=== PATIENT | male | born 1960 | race Caucasian/White ===

== ENCOUNTER 2016-11-05 10:54 | Inpatient (IN) | payer OTHER ==
[2016-11-05] MEDS ORDERED: IOPAMIDOL (ISOVUE-300) 100 ML BTL ONE (11:03)
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
[2016-11-05 11:12] LABS: ADD DIFF? YES; ADD MORPH? NO; ADD SCAN? YES; ATYPICAL LYMPHOCYTE FLAG 0 (0-99); FRAGMENT RBC FLAG 0 (0-99); HEMATOCRIT 39.1 % (40.0-51.0); HEMOGLOBIN 13.3 g/dL (13.7-17.5); LEFT SHIFT FLG 50 (0-99); LIPEMIA HEMOLYSIS FLAG 90 (0-99); MEAN CELL HEMOGLOBIN 33.3 pg (27.9-34.1); MEAN PLATELET VOLUME 8.9 fL (8.7-11.7); PLATELET CLUMPS FLAG 0 (0-99); PLATELET COUNT 368 10^3/uL (150-400); RED BLOOD CELL COUNT 3.99 10^6/uL (4.40-6.38); RED CELL DISTRIBUTION WIDTH 12.7 % (11.5-15.2)
[2016-11-05 11:33] LABS: ANION GAP 12 mEq/L (8-16); CALCIUM 8.9 mg/dL (8.5-10.4); CARBON DIOXIDE 18 mEq/l (22-31); CHLORIDE 109 mEq/L (97-110); CREATININE 0.8 mg/dL (0.7-1.3); GLOMERULAR FILTRATION RATE > 60; GLUCOSE 168 mg/dL (70-100); POTASSIUM 3.7 mEq/L (3.5-5.2); SODIUM 139 mEq/L (134-144)
[2016-11-05] MEDS ORDERED: LET GEL TOPICAL 1 EA SYR TP ONE (11:33)
[2016-11-05 11:50] LABS: PLATELET ESTIMATE ADEQUATE (ADEQ)
[2016-11-05] MEDS ORDERED: HYDROmorphONE/DILAUDID 1 MG/ML SYR ONE (12:08)
[2016-11-05] MEDS ORDERED: HYDROmorphONE/DILAUDID 1 MG/ML SYR IVP ONE (12:13)
[2016-11-05] MEDS ORDERED: ONDANSETRON 4 MG/2 ML VIAL IVP PRN (13:39)
[2016-11-05] MEDS ORDERED: D5W 1/2 NS 1,000 ML IV SCH (13:45)
[2016-11-05] MEDS: DIAZEPAM 5 MG TAB PO PRN (16:15)
[2016-11-05 16:22] LABS: ABSOLUTE IMMATURE GRANULOCYTES 0.26 10^3/uL (0.00-0.10); ADD DIFF? NO; ADD MORPH? NO; ADD SCAN? NO; ATYPICAL LYMPHOCYTE FLAG 0 (0-99); FRAGMENT RBC FLAG 0 (0-99); HEMOGLOBIN 12.4 g/dL (13.7-17.5); LEFT SHIFT FLG 30 (0-99); LIPEMIA HEMOLYSIS FLAG 80 (0-99); MEAN CELL HEMOGLOBIN 33.2 pg (27.9-34.1); MEAN CELL HEMOGLOBIN CONCENTR. 33.5 g/dL (32.4-36.7); MEAN CELL VOLUME 98.9 fL (81.5-99.8); MEAN PLATELET VOLUME 8.8 fL (8.7-11.7); PLATELET CLUMPS FLAG 0 (0-99); PLATELET COUNT 251 10^3/uL (150-400); RED BLOOD CELL COUNT 3.74 10^6/uL (4.40-6.38); RED CELL DISTRIBUTION WIDTH 12.9 % (11.5-15.2)
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
[2016-11-05] MEDS: BACITRACIN ZINC 14.2 GM OINTTUBE TP SCH (20:29)
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
--- NOTE | 2016-11-05 23:35 | SOAPPROG ---
SOAP Progress Note Assessment/Plan: Assessment: FU CXR DOES NOT SHOW PNEUMO BUT HAS COLLAPSING CHEST WALL BS EQUAL/ PAIN CONTROL ADEQUATE Plan:VIGOROUS PULMONARY TOILET/ CONSIDER EPIDURAL AND CONSIDER RIB PLATING/ WILL SCHEDULE FOR WEDNESDAY IF NOT IMPROVING 11/05/16 23:33 Objective: Vital Signs Temp Pulse Resp BP Pulse Ox 37.3 C 76 18 127/73 H 95 11/05/16 14:11 11/05/16 14:11 11/05/16 14:11 11/05/16 14:11 11/05/16 14:11 Laboratory Results 11/05/16 16:12 11/04/16 11/05/16 11/06/16 05:59 05:59 05:59 Intake Total 1050 Balance 1050 ICD10 Worksheet Patient Problems: Problems Problem Status Onset Multiple traumatic injuries Acute
[2016-11-06] MEDS: ZOLPIDEM TARTRATE 5 MG TAB PO PRN (00:12)
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
[2016-11-06 01:20] LABS: % IMMATURE GRANULYOCYTES 0.6 % (0.0-1.1); ADD DIFF? NO; ADD MORPH? NO; ADD SCAN? NO; ATYPICAL LYMPHOCYTE FLAG 0 (0-99); FRAGMENT RBC FLAG 0 (0-99); HEMATOCRIT 37.4 % (40.0-51.0); HEMOGLOBIN 12.3 g/dL (13.7-17.5); LEFT SHIFT FLG 10 (0-99); LIPEMIA HEMOLYSIS FLAG 80 (0-99); MEAN CELL HEMOGLOBIN 32.6 pg (27.9-34.1); MEAN CELL HEMOGLOBIN CONCENTR. 32.9 g/dL (32.4-36.7); MEAN CELL VOLUME 99.2 fL (81.5-99.8); MEAN PLATELET VOLUME 9.1 fL (8.7-11.7); PLATELET CLUMPS FLAG 0 (0-99); PLATELET COUNT 258 10^3/uL (150-400); RED BLOOD CELL COUNT 3.77 10^6/uL (4.40-6.38); RED CELL DISTRIBUTION WIDTH 13.2 % (11.5-15.2)
[2016-11-06 04:30] LABS: % IMMATURE GRANULYOCYTES 0.6 % (0.0-1.1); ADD DIFF? NO; ADD MORPH? NO; ADD SCAN? NO; ATYPICAL LYMPHOCYTE FLAG 0 (0-99); FRAGMENT RBC FLAG 0 (0-99); HEMATOCRIT 37.2 % (40.0-51.0); HEMOGLOBIN 12.1 g/dL (13.7-17.5); LEFT SHIFT FLG 10 (0-99); LIPEMIA HEMOLYSIS FLAG 80 (0-99); MEAN CELL HEMOGLOBIN 32.6 pg (27.9-34.1); MEAN CELL HEMOGLOBIN CONCENTR. 32.5 g/dL (32.4-36.7); MEAN CELL VOLUME 100.3 fL (81.5-99.8); MEAN PLATELET VOLUME 9.1 fL (8.7-11.7); PLATELET CLUMPS FLAG 0 (0-99); PLATELET COUNT 260 10^3/uL (150-400); RED BLOOD CELL COUNT 3.71 10^6/uL (4.40-6.38); RED CELL DISTRIBUTION WIDTH 13.2 % (11.5-15.2)
[2016-11-06 05:15] LABS: ANION GAP 8 mEq/L (8-16); CALCIUM 8.8 mg/dL (8.5-10.4); CARBON DIOXIDE 25 mEq/l (22-31); CHLORIDE 106 mEq/L (97-110); CREATININE 0.7 mg/dL (0.7-1.3); GLOMERULAR FILTRATION RATE > 60; GLUCOSE 106 mg/dL (70-100); POTASSIUM 4.5 mEq/L (3.5-5.2); SODIUM 139 mEq/L (134-144)
[2016-11-06] MEDS: BACITRACIN ZINC 14.2 GM OINTTUBE TP SCH ×2 (10:40→17:00)
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
[2016-11-07] MEDS: BACITRACIN ZINC 14.2 GM OINTTUBE TP SCH ×2 (08:18→20:07)
[2016-11-07] MEDS ORDERED: KETOROLAC 30 MG/1 ML SDV IVP ONE (09:09)
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
[2016-11-07] MEDS: oxyCODONE IR 15 MG TAB PO PRN (10:36)
[2016-11-07] MEDS: KETOROLAC 15 MG/1 ML SDV IVP SCH ×2 (15:17→20:07)
[2016-11-07] MEDS: DOCUSATE SODIUM 100 MG CAP PO SCH (20:08)
[2016-11-07] MEDS: DIAZEPAM 5 MG TAB PO PRN (20:08)
[2016-11-08] MEDS: oxyCODONE IR 15 MG TAB PO PRN ×2 (00:53→07:48)
[2016-11-08] MEDS: KETOROLAC 15 MG/1 ML SDV IVP SCH ×4 (03:10→20:57)
[2016-11-08] MEDS: BACITRACIN ZINC 14.2 GM OINTTUBE TP SCH ×2 (07:49→21:03)
[2016-11-08] MEDS: DOCUSATE SODIUM 100 MG CAP PO SCH ×2 (07:49→21:03)
[2016-11-08] MEDS ORDERED: BISACODYL 10 MG SUPP PR PRN (08:23)
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
[2016-11-08] MEDS: POLYETHYLENE GLYCOL 3350 17 GM PKT PO PRN (12:59)
[2016-11-08] MEDS: SENNOSIDES/DOCUSATE SODIUM TAB PO SCH ×2 (13:00→20:59)
[2016-11-08] MEDS: oxyCODONE IR 5 MG TAB PO PRN ×3 (15:32→22:16)
[2016-11-08] MEDS: ZOLPIDEM TARTRATE 5 MG TAB PO PRN (21:00)
[2016-11-08] MEDS: DIAZEPAM 5 MG TAB PO PRN (22:16)
[2016-11-09] MEDS: oxyCODONE IR 5 MG TAB PO PRN ×6 (04:38→23:37)
[2016-11-09] MEDS: KETOROLAC 15 MG/1 ML SDV IVP SCH ×4 (04:39→20:09)
[2016-11-09] MEDS: SENNOSIDES/DOCUSATE SODIUM TAB PO SCH ×2 (08:08→20:06)
[2016-11-09] MEDS: BACITRACIN ZINC 14.2 GM OINTTUBE TP SCH ×2 (08:09→23:40)
[2016-11-09] MEDS: DOCUSATE SODIUM 100 MG CAP PO SCH ×2 (08:10→20:07)
--- NOTE | 2016-11-09 09:20 | CPEKG ---
Heart Rate: 64 RR Interval: 938 P-R Interval: 184 QRSD Interval: 96 QT Interval: 412 QTC Interval: 425 P [place]: 49 QRS [place]: -12 T Wave [place]: -1 EKG Severity - NORMAL ECG - EKG Impression: SINUS RHYTHM Electronically Signed By: Jason Batista 10-Nov-2016 16:10:47
[2016-11-09] MEDS: ZOLPIDEM TARTRATE 5 MG TAB PO PRN (20:11)
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
[2016-11-09] MEDS: DIAZEPAM 5 MG TAB PO PRN (23:38)
[2016-11-10] MEDS: KETOROLAC 15 MG/1 ML SDV IVP SCH ×5 (05:23→21:52)
[2016-11-10] MEDS: oxyCODONE IR 5 MG TAB PO PRN ×5 (07:47→16:25)
[2016-11-10] MEDS: DIAZEPAM 5 MG TAB PO PRN ×4 (07:49→16:26)
[2016-11-10] MEDS: DOCUSATE SODIUM 100 MG CAP PO SCH ×2 (07:50→21:05)
[2016-11-10] MEDS: SENNOSIDES/DOCUSATE SODIUM TAB PO SCH ×2 (07:50→21:05)
[2016-11-10] MEDS: POLYETHYLENE GLYCOL 3350 17 GM PKT PO PRN (07:51)
[2016-11-10] MEDS: BACITRACIN ZINC 14.2 GM OINTTUBE TP SCH ×2 (10:04→21:04)
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
[2016-11-10] MEDS ORDERED: ceFAZolin 2 GM/DEXTROSE 100 ML IV ONE (17:12)
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
[2016-11-10] MEDS ORDERED: LIDOCAINE 1% 300 MG/30 ML SDV ONE (22:35)
[2016-11-10] MEDS ORDERED: BUPIVACAINE/EPI 0.5% 30 ML SDV ONE (22:35)
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
[2016-11-10] MEDS ORDERED: MIDAZOLAM 2 MG/2 ML VIAL ONE (23:00)
[2016-11-10] MEDS ORDERED: PROPOFOL 200 MG/20 ML VIAL ONE ×2 (23:00)
[2016-11-10] MEDS ORDERED: fentaNYL 100 MCG/2 ML INJ ONE ×3 (23:00→23:39)
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
[2016-11-10] MEDS ORDERED: NALOXONE HCL 0.4 MG/ML INJ IVP PRN (23:19)
--- NOTE | 2016-11-10 23:30 | POSTOPPROG ---
Post Op Note Date of Operation: 11/10/16 Surgeon: John Brice Art Critic: None Anesthesiologist: Dr. Parth Holman Anesthesia: IV Sedation Pre-op Diagnosis: Hydropneumothorax post trauma Post-op Diagnosis: Same Indication: Hypoxia Procedure: Right closed tube thoracostomy Findings: Approximately 200 cc of serosanguineous drainage with air Inf/Abcess present in the surg proc area at time of surgery?: No Complications: None Drains: Other ([facility] 28 Guatemalan chest tube) Specimen(s): None
--- NOTE | 2016-11-10 23:33 | POSTANESTH ---
Post Anesthetic Evaluation Cardiovascular Status: Normal, Stable Respiratory Status: Similar to Pre-op Cond. Level of Consciousness/Mental Status: Can Participate in Eval Pain Control: Adequate, Prn Tx Ordered Nausea/Vomiting Control: Adequate, Prn Tx Ordered Complications Possibly Related to Anesthesia: None Noted
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
[2016-11-10] MEDS: fentaNYL 100 MCG/2 ML INJ IVP PRN ×2 (23:41→23:56)
[2016-11-11] MEDS ORDERED: ceFAZolin 2 GM/DEXTROSE 100 ML IV ONE (06:00)
[2016-11-11] MEDS ORDERED: BUPIVACAINE/EPI 0.5% 30 ML SDV ONE (08:05)
[2016-11-11] MEDS: SENNOSIDES/DOCUSATE SODIUM TAB PO SCH ×2 (08:29→20:10)
[2016-11-11] MEDS: DOCUSATE SODIUM 100 MG CAP PO SCH ×2 (08:29→20:10)
[2016-11-11] MEDS: KETOROLAC 15 MG/1 ML SDV IVP SCH ×3 (08:30→20:09)
[2016-11-11] MEDS ORDERED: BUPIVACAINE 0.5% 30 ML SDV ONE (08:32)
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
[2016-11-11] MEDS ORDERED: LR 1,000 ML IV ONE (10:04)
[2016-11-11] MEDS: BACITRACIN ZINC 14.2 GM OINTTUBE TP SCH ×2 (10:09→20:10)
[2016-11-11] MEDS ORDERED: CEFAZOLIN 2 GM/DEXTROSE/100 ML BAG IV ONE (10:32)
[2016-11-11] MEDS ORDERED: NALOXONE HCL 0.4 MG/ML INJ IVP PRN ×2 (10:47→12:19)
[2016-11-11] MEDS ORDERED: PROMETHAZINE HCL 25 MG/ML INJ IVP PRN ×2 (10:47→12:19)
[2016-11-11] MEDS ORDERED: MEPERIDINE 25 MG/ML SYR IVP PRN ×2 (10:47→12:19)
[2016-11-11] MEDS ORDERED: fentaNYL 100 MCG/2 ML INJ IVP PRN ×2 (10:47→12:19)
[2016-11-11] MEDS ORDERED: OXYCODONE/APAP 5/325 TAB PO PRN ×2 (10:47→12:19)
[2016-11-11] MEDS ORDERED: METOCLOPRAMIDE 10 MG/2 ML VIAL IVP PRN ×2 (10:47→12:19)
[2016-11-11] MEDS ORDERED: ONDANSETRON 4 MG/2 ML VIAL IVP PRN ×2 (10:47→12:19)
[2016-11-11] MEDS ORDERED: LR 500 ML IV PRN ×2 (10:47→12:19)
--- NOTE | 2016-11-11 10:47 | PDANEPAE ---
ANE Past Medical History - Cardiovascular History Hx Hypertension: No Hx Arrhythmias: No Hx Chest Pain: No - Pulmonary History Hx COPD: No Hx Asthma/Reactive Airway Disease: No Hx Recent Upper Respiratory Infection: No Hx Oxygen in Use at Home: No - Endocrine History Hx Diabetes: No - Renal History Hx Renal Disorders: No - Liver History Hx Hepatic Disorders: No - Neurological & Psychiatric Hx Hx Neurological and Psychiatric Disorders: No - GI History Hx Gastrointestinal Disorders: No - Chronic Pain History Chronic Pain: No ANE Patient History - Allergies Allergies/Adverse Reactions: No Known Allergies Allergy (Unverified 11/05/16 11:35) - Home Medications Home Medications: NK [No Known Home Meds] 11/05/16 [Last Taken Unknown] - NPO status NPO Since - Liquids (Date): 11/10/16 NPO Since - Liquids (Time): 15:00 NPO Since - Solids (Date): 11/10/16 NPO Since - Solids (Time): 15:00 - Smoking Hx Smoking Status: Former smoker (rare smoker in past) - Alcohol Use Alcohol Use: Other (about 1 glass of wine/day) ANE Labs/Vital Signs - Labs Result Diagrams: 11/06/16 04:10 11/06/16 04:10 - Vital Signs Blood Pressure: 123/77 Heart Rate: 62 Respiratory Rate: 14 O2 Sat (%): 95 Height: 175.26 cm Weight: 66.678 kg ANE Physical Exam - Airway Neck exam: decreased ROM, C-collar in place Mallampati Score: Class 2 Mouth exam: normal dental/mouth exam - Pulmonary Pulmonary: other (R thoracostomy tube inserted this morning) - Cardiovascular Cardiovascular: regular rate and rhythym, no murmur, rub, or gallop - ASA Status ASA Status: III ANE Anesthesia Plan Anesthesia Plan: GA w LMA
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
[2016-11-11] MEDS ORDERED: LIDOCAINE 2% 5 ML SDV ONE (10:51)
[2016-11-11] MEDS ORDERED: ONDANSETRON 4 MG/2 ML VIAL ONE (10:51)
[2016-11-11] MEDS ORDERED: LIDOCAINE 2% JELLY 5 ML TUBE ONE (10:51)
[2016-11-11] MEDS ORDERED: fentaNYL 250 MCG/5 ML INJ ONE (10:51)
[2016-11-11] MEDS ORDERED: PROPOFOL 200 MG/20 ML VIAL ONE (10:51)
[2016-11-11] MEDS ORDERED: DEXAMETHASONE 4 MG/ML VIAL ONE ×2 (10:52)
--- NOTE | 2016-11-11 12:20 | POSTANESTH ---
Post Anesthetic Evaluation Cardiovascular Status: Similar to Pre-Op Cond Respiratory Status: Similar to Pre-op Cond. Level of Consciousness/Mental Status: Can Participate in Eval, Moderately Sleepy Pain Control: Adequate, Prn Tx Ordered Nausea/Vomiting Control: Adequate, Prn Tx Ordered Complications Possibly Related to Anesthesia: None Noted
--- NOTE | 2016-11-11 12:32 | POSTOPPROG ---
Post Op Note Date of Operation: 11/11/16 Surgeon: Alin Mooney Rn Otolaryngology: brandon hernandez Anesthesiologist: rip Anesthesia: GET(General Endotracheal) Pre-op Diagnosis: displaced right clavicle fracture Post-op Diagnosis: same Indication: displaced, comminuted fracture Procedure: ORIF right clavicle Findings: comminuted Rt clavicle fx Inf/Abcess present in the surg proc area at time of surgery?: No EBL: 50-100
[2016-11-11] MEDS: oxyCODONE IR 5 MG TAB PO PRN ×3 (13:45→21:05)
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
[2016-11-12] MEDS: KETOROLAC 15 MG/1 ML SDV IVP SCH ×2 (02:46→08:27)
[2016-11-12] MEDS: oxyCODONE IR 5 MG TAB PO PRN ×5 (02:47→21:14)
[2016-11-12] MEDS: DIAZEPAM 5 MG TAB PO PRN ×2 (05:47→20:08)
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
[2016-11-12] MEDS: SENNOSIDES/DOCUSATE SODIUM TAB PO SCH ×2 (08:28→20:08)
[2016-11-12] MEDS: DOCUSATE SODIUM 100 MG CAP PO SCH ×2 (08:28→20:08)
[2016-11-12 10:15] LABS: % IMMATURE GRANULYOCYTES 0.5 % (0.0-1.1); ABSOLUTE IMMATURE GRANULOCYTES 0.07 10^3/uL (0.00-0.10); ADD DIFF? NO; ADD MORPH? NO; ADD SCAN? NO; ATYPICAL LYMPHOCYTE FLAG 20 (0-99); FRAGMENT RBC FLAG 0 (0-99); HEMATOCRIT 35.8 % (40.0-51.0); HEMOGLOBIN 11.9 g/dL (13.7-17.5); LEFT SHIFT FLG 0 (0-99); LIPEMIA HEMOLYSIS FLAG 80 (0-99); MEAN CELL HEMOGLOBIN 32.7 pg (27.9-34.1); MEAN CELL HEMOGLOBIN CONCENTR. 33.2 g/dL (32.4-36.7); MEAN CELL VOLUME 98.4 fL (81.5-99.8); MEAN PLATELET VOLUME 9.1 fL (8.7-11.7); PLATELET CLUMPS FLAG 0 (0-99); PLATELET COUNT 291 10^3/uL (150-400); RED BLOOD CELL COUNT 3.64 10^6/uL (4.40-6.38); RED CELL DISTRIBUTION WIDTH 12.5 % (11.5-15.2)
[2016-11-12 11:07] LABS: ANION GAP 7 mEq/L (8-16); CALCIUM 9.1 mg/dL (8.5-10.4); CARBON DIOXIDE 26 mEq/l (22-31); CHLORIDE 100 mEq/L (97-110); CREATININE 0.7 mg/dL (0.7-1.3); GLOMERULAR FILTRATION RATE > 60; GLUCOSE 109 mg/dL (70-100); POTASSIUM 4.5 mEq/L (3.5-5.2); SODIUM 133 mEq/L (134-144)
[2016-11-12] MEDS: BACITRACIN ZINC 14.2 GM OINTTUBE TP SCH ×2 (11:49→20:08)
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
[2016-11-13] MEDS: oxyCODONE IR 5 MG TAB PO PRN ×6 (01:34→19:28)
[2016-11-13] MEDS: SENNOSIDES/DOCUSATE SODIUM TAB PO SCH ×2 (08:11→21:16)
[2016-11-13] MEDS: POLYETHYLENE GLYCOL 3350 17 GM PKT PO PRN (08:11)
[2016-11-13] MEDS: BACITRACIN ZINC 14.2 GM OINTTUBE TP SCH ×2 (08:11→21:36)
[2016-11-13] MEDS: DOCUSATE SODIUM 100 MG CAP PO SCH ×2 (08:11→21:16)
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
[2016-11-13] MEDS: MAGNESIUM HYDROXIDE 30 ML UDCUP PO PRN (13:06)
[2016-11-13] MEDS: ZOLPIDEM TARTRATE 5 MG TAB PO PRN (21:16)
[2016-11-14] MEDS: oxyCODONE IR 5 MG TAB PO PRN ×6 (04:17→23:42)
--- NOTE | 2016-11-14 09:05 | TRAUMAPN ---
Objective: Vital Signs Temp Pulse Resp BP Pulse Ox 36.9 C 65 16 126/79 H 92 11/14/16 04:00 11/14/16 04:00 11/14/16 04:00 11/14/16 04:00 11/14/16 04:00 Laboratory Results 11/12/16 10:07 11/12/16 10:07 11/13/16 11/14/16 11/15/16 05:59 05:59 05:59 Intake Total 1150 2500 Output Total 600 740 Balance 550 1760 right chest tube removed as drainage minimal. will check cxr later. - C-Spine Clearance Cervical Spine Cleared: No Physical Exam - Physical Exam General Appearance: alert Respiratory: lungs clear, pain on movement Cardiac/Chest: regular rate, rhythm Abdomen: soft
[2016-11-14] MEDS: BACITRACIN ZINC 14.2 GM OINTTUBE TP SCH ×2 (09:09→20:43)
[2016-11-14] MEDS: SENNOSIDES/DOCUSATE SODIUM TAB PO SCH ×2 (09:10→20:44)
[2016-11-14] MEDS: DOCUSATE SODIUM 100 MG CAP PO SCH ×2 (09:10→20:44)
[2016-11-14] MEDS: POLYETHYLENE GLYCOL 3350 17 GM PKT PO PRN (14:34)
[2016-11-14] MEDS: LACTULOSE 20 GM/30 ML UDCUP PO PRN (17:36)
[2016-11-14] MEDS: ZOLPIDEM TARTRATE 5 MG TAB PO PRN (22:03)
[2016-11-15] MEDS: ACETAMINOPHEN 500 MG TAB PO PRN ×2 (05:52→19:40)
[2016-11-15] MEDS: oxyCODONE IR 5 MG TAB PO PRN ×5 (05:52→23:44)
[2016-11-15] MEDS: DOCUSATE SODIUM 100 MG CAP PO SCH ×2 (09:33→20:52)
[2016-11-15] MEDS: SENNOSIDES/DOCUSATE SODIUM TAB PO SCH ×2 (09:33→20:53)
[2016-11-15] MEDS: BACITRACIN ZINC 14.2 GM OINTTUBE TP SCH ×2 (09:41→20:35)
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
[2016-11-15] MEDS: ZOLPIDEM TARTRATE 5 MG TAB PO PRN (20:42)
[2016-11-16] MEDS: oxyCODONE IR 5 MG TAB PO PRN ×4 (05:46→21:01)
[2016-11-16] MEDS: SENNOSIDES/DOCUSATE SODIUM TAB PO SCH ×2 (08:14→22:16)
[2016-11-16] MEDS: ACETAMINOPHEN 500 MG TAB PO PRN (08:14)
[2016-11-16] MEDS: LACTULOSE 20 GM/30 ML UDCUP PO PRN (08:15)
[2016-11-16] MEDS: DOCUSATE SODIUM 100 MG CAP PO SCH ×2 (08:15→22:16)
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
[2016-11-16] MEDS ORDERED: FUROSEMIDE 20 MG TAB PO ONE (11:03)
[2016-11-16] MEDS: BACITRACIN ZINC 14.2 GM OINTTUBE TP SCH ×2 (13:21→22:27)
[2016-11-16] MEDS: DIAZEPAM 5 MG TAB PO PRN (22:16)
[2016-11-17] MEDS: oxyCODONE IR 5 MG TAB PO PRN ×4 (05:15→22:48)
[2016-11-17] MEDS: DIAZEPAM 5 MG TAB PO PRN (05:28)
[2016-11-17] MEDS: ACETAMINOPHEN 500 MG TAB PO PRN (05:28)
[2016-11-17] MEDS: BACITRACIN ZINC 14.2 GM OINTTUBE TP SCH ×2 (09:48→20:31)
[2016-11-17] MEDS: SENNOSIDES/DOCUSATE SODIUM TAB PO SCH ×2 (09:52→20:30)
[2016-11-17] MEDS: DOCUSATE SODIUM 100 MG CAP PO SCH ×2 (09:53→20:30)
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
[2016-11-17] MEDS: CYCLOBENZAPRINE 10 MG TAB PO PRN (20:30)
[2016-11-18] MEDS: DIAZEPAM 5 MG TAB PO PRN ×2 (00:22→19:53)
[2016-11-18] MEDS: oxyCODONE IR 5 MG TAB PO PRN ×8 (00:23→23:56)
[2016-11-18] MEDS: CYCLOBENZAPRINE 10 MG TAB PO PRN ×3 (06:07→23:56)
[2016-11-18] MEDS: SENNOSIDES/DOCUSATE SODIUM TAB PO SCH ×2 (08:24→19:52)
[2016-11-18] MEDS: POLYETHYLENE GLYCOL 3350 17 GM PKT PO SCH (08:24)
[2016-11-18] MEDS: DOCUSATE SODIUM 100 MG CAP PO SCH ×2 (08:24→19:52)
[2016-11-18] MEDS: BACITRACIN ZINC 14.2 GM OINTTUBE TP SCH ×2 (10:59→20:16)
[2016-11-18] MEDS: MAGNESIUM HYDROXIDE 30 ML UDCUP PO PRN (14:08)
[2016-11-18] MEDS: ACETAMINOPHEN 500 MG TAB PO PRN (16:25)
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
[2016-11-19] MEDS: ACETAMINOPHEN 500 MG TAB PO PRN (04:25)
[2016-11-19] MEDS: oxyCODONE IR 5 MG TAB PO PRN ×7 (04:26→22:36)
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
[2016-11-19] MEDS: SENNOSIDES/DOCUSATE SODIUM TAB PO SCH ×2 (09:21→20:32)
[2016-11-19] MEDS: DOCUSATE SODIUM 100 MG CAP PO SCH ×2 (09:21→20:32)
[2016-11-19] MEDS: POLYETHYLENE GLYCOL 3350 17 GM PKT PO SCH (09:21)
[2016-11-19] MEDS: BACITRACIN ZINC 14.2 GM OINTTUBE TP SCH ×2 (09:23→20:34)
[2016-11-19] MEDS: LACTULOSE 20 GM/30 ML UDCUP PO PRN (16:59)
[2016-11-19] MEDS: DIAZEPAM 5 MG TAB PO PRN (20:33)
[2016-11-20] MEDS: oxyCODONE IR 5 MG TAB PO PRN ×6 (01:44→19:04)
[2016-11-20] MEDS: CYCLOBENZAPRINE 10 MG TAB PO PRN (01:44)
[2016-11-20] MEDS: POLYETHYLENE GLYCOL 3350 17 GM PKT PO SCH (08:33)
[2016-11-20] MEDS: SENNOSIDES/DOCUSATE SODIUM TAB PO SCH ×2 (08:33→20:36)
[2016-11-20] MEDS: DOCUSATE SODIUM 100 MG CAP PO SCH ×2 (08:33→20:36)
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
[2016-11-20] MEDS: BACITRACIN ZINC 14.2 GM OINTTUBE TP SCH ×2 (11:51→20:37)
[2016-11-20] MEDS: ZOLPIDEM TARTRATE 5 MG TAB PO PRN (20:35)
[2016-11-21] MEDS: oxyCODONE IR 5 MG TAB PO PRN ×5 (00:35→17:16)
[2016-11-21] MEDS: DIAZEPAM 5 MG TAB PO PRN (02:33)
[2016-11-21] MEDS: ACETAMINOPHEN 500 MG TAB PO PRN ×2 (05:17→10:55)
[2016-11-21] MEDS: POLYETHYLENE GLYCOL 3350 17 GM PKT PO SCH (08:57)
[2016-11-21] MEDS: SENNOSIDES/DOCUSATE SODIUM TAB PO SCH ×2 (08:57→20:49)
[2016-11-21] MEDS: DOCUSATE SODIUM 100 MG CAP PO SCH ×2 (08:58→20:49)
[2016-11-21] MEDS: BACITRACIN ZINC 14.2 GM OINTTUBE TP SCH ×2 (09:09→20:49)
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
[2016-11-21] MEDS: CYCLOBENZAPRINE 10 MG TAB PO PRN (10:56)
[2016-11-21] MEDS: LACTULOSE 20 GM/30 ML UDCUP PO PRN (11:04)
[2016-11-21] MEDS: TEMAZEPAM 15 MG CAP PO PRN (20:47)
[2016-11-22] MEDS: oxyCODONE IR 5 MG TAB PO PRN ×6 (04:31→19:15)
[2016-11-22] MEDS: POLYETHYLENE GLYCOL 3350 17 GM PKT PO SCH (09:33)
[2016-11-22] MEDS: DOCUSATE SODIUM 100 MG CAP PO SCH ×2 (09:34→20:03)
[2016-11-22] MEDS: SENNOSIDES/DOCUSATE SODIUM TAB PO SCH ×2 (09:34→20:03)
[2016-11-22] MEDS: BACITRACIN ZINC 14.2 GM OINTTUBE TP SCH ×2 (09:41→20:04)
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
[2016-11-22] MEDS: CYCLOBENZAPRINE 10 MG TAB PO PRN ×2 (11:22→20:03)
[2016-11-22] MEDS: TEMAZEPAM 15 MG CAP PO PRN (20:52)
[2016-11-23] MEDS: oxyCODONE IR 5 MG TAB PO PRN ×6 (03:54→19:29)
[2016-11-23 05:11] LABS: % IMMATURE GRANULYOCYTES 0.3 % (0.0-1.1); ABSOLUTE IMMATURE GRANULOCYTES 0.02 10^3/uL (0.00-0.10); ADD DIFF? NO; ADD MORPH? NO; ADD SCAN? NO; ATYPICAL LYMPHOCYTE FLAG 0 (0-99); FRAGMENT RBC FLAG 0 (0-99); HEMATOCRIT 35.3 % (40.0-51.0); HEMOGLOBIN 11.5 g/dL (13.7-17.5); LEFT SHIFT FLG 0 (0-99); LIPEMIA HEMOLYSIS FLAG 80 (0-99); MEAN CELL HEMOGLOBIN 32.2 pg (27.9-34.1); MEAN CELL HEMOGLOBIN CONCENTR. 32.6 g/dL (32.4-36.7); MEAN CELL VOLUME 98.9 fL (81.5-99.8); MEAN PLATELET VOLUME 8.7 fL (8.7-11.7); PLATELET CLUMPS FLAG 0 (0-99); PLATELET COUNT 381 10^3/uL (150-400); RED BLOOD CELL COUNT 3.57 10^6/uL (4.40-6.38); RED CELL DISTRIBUTION WIDTH 12.4 % (11.5-15.2)
[2016-11-23 05:17] LABS: ANION GAP 8 mEq/L (8-16); CALCIUM 8.8 mg/dL (8.5-10.4); CARBON DIOXIDE 25 mEq/l (22-31); CHLORIDE 106 mEq/L (97-110); CREATININE 0.7 mg/dL (0.7-1.3); GLOMERULAR FILTRATION RATE > 60; GLUCOSE 81 mg/dL (70-100); POTASSIUM 4.4 mEq/L (3.5-5.2); SODIUM 139 mEq/L (134-144)
[2016-11-23] MEDS: CYCLOBENZAPRINE 10 MG TAB PO PRN ×2 (07:26→13:32)
[2016-11-23] MEDS: SENNOSIDES/DOCUSATE SODIUM TAB PO SCH (09:19)
[2016-11-23] MEDS: BACITRACIN ZINC 14.2 GM OINTTUBE TP SCH (09:20)
[2016-11-23] MEDS: POLYETHYLENE GLYCOL 3350 17 GM PKT PO SCH (09:20)
[2016-11-23] MEDS: DOCUSATE SODIUM 100 MG CAP PO SCH (09:20)
[2016-11-23] MEDS: LACTULOSE 20 GM/30 ML UDCUP PO PRN (10:32)
[2016-11-23 16:33] VITALS: BP 125/88; PULSE 77; RESP 12; TEMP 98.5; O2SAT 93
--- NOTE | 2016-11-23 18:24 | TRAUMAPN ---
Assessment/Plan: 11/24/2015 PAD#19 Assessment: Stable and set for discharge. Plan: Discharge Subjective: I'm moving my bowels with lactulose Objective: Vital Signs Temp Pulse Resp BP Pulse Ox 36.9 C 77 12 125/88 H 93 11/23/16 16:00 11/23/16 16:00 11/23/16 16:00 11/23/16 16:00 11/23/16 16:00 Laboratory Results 11/23/16 04:26 11/23/16 04:26 11/22/16 11/23/16 11/24/16 05:59 05:59 05:59 Intake Total 500 Balance 500 - C-Spine Clearance Cervical Spine Cleared: No Physical Exam - Physical Exam General Appearance: WD/WN, alert, no apparent distress Neck: other (Maimi collar in place) Respiratory: lungs clear, normal breath sounds (CXR- no PTX, small effusion noted, Chest tube site looks good) Cardiac/Chest: regular rate, rhythm Abdomen: normal bowel sounds, non-tender, soft Male Genitalia: deferred Rectal: deferred Back: Normal inspection Skin: normal color, warm/dry Extremities: other (Right arm in sling) Neuro/Psych: no motor/sensory deficits, normal mood/affect, oriented x 3 Time Spent w/Patient (minutes): 35 (most of the time was spent going over his injuries and issues related to discharge)
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
== END 2016-11-23 19:51 | disposition home or self-care (01) | DRG 958 ==
LOC: F2N 13:50 → F3N 11-07 17:10
PROVIDERS: ADMIT Surgery; ATTEND Surgery
PROC: 0W9930Z Drainage of Right Pleural Cavity with Drainage Device, Percutaneous Approach (ICD-10-PCS; 2016-11-10)
PROC: 0PS904Z Reposition Right Clavicle with Internal Fixation Device, Open Approach (ICD-10-PCS; principal; 2016-11-11 11:00)
DX: S06.6X1A Traumatic subarachnoid hemorrhage with loss of consciousness of 30 minutes or less, initial encounter (principal); S27.0XXA Traumatic pneumothorax, initial encounter; S42.021A Displaced fracture of shaft of right clavicle, initial encounter for closed fracture; S22.41XA Multiple fractures of ribs, right side, initial encounter for closed fracture; S12.691A Other nondisplaced fracture of seventh cervical vertebra, initial encounter for closed fracture; S22.028A Other fracture of second thoracic vertebra, initial encounter for closed fracture; S42.114A Nondisplaced fracture of body of scapula, right shoulder, initial encounter for closed fracture; S32.414A Nondisplaced fracture of anterior wall of right acetabulum, initial encounter for closed fracture; S32.591A Other specified fracture of right pubis, initial encounter for closed fracture; S22.5XXA Flail chest, initial encounter for closed fracture; T14.8 Other injury of unspecified body region; J90 Pleural effusion, not elsewhere classified; R40.2411 Glasgow coma scale score 13-15, in the field [EMT or ambulance]; V18.0XXA Pedal cycle driver injured in noncollision transport accident in nontraffic accident, initial encounter; Y93.55 Activity, bike riding; Y92.488 Other paved roadways as the place of occurrence of the external cause; Y99.8 Other external cause status
CPT/HCPCS: 82947-QW; 92507-GN; 92523-GN; 92610-GN; 96374; 97116-GP; 97161-GP; 97165-GO; 97530-GO; 97535-GO; A4565; C1713; J0690; J1100; J1170; J1885; J2250; J2405; J2704; J3010; Q9967